=== PATIENT | female | born 1965 | race Caucasian/White ===

== ENCOUNTER 2019-04-24 12:37 | Emergency (ER) | payer OTHER ==
[2019-04-24] MEDS ORDERED: methylPREDNISolone Sodium Succinate 125 MG/2 ML SDV IVPUSH ONE (13:00)
[2019-04-24] MEDS ORDERED: Sodium Chloride 0.9% 1,000 ML IV ONE (13:08)
[2019-04-24] MEDS ORDERED: methylPREDNISolone Sodium Succinate 125 MG/2 ML SDV ONE (14:53)
--- NOTE | 2019-04-24 16:49 | EDM.PDOC ---
ED HPI GENERAL MEDICAL PROBLEM - General Chief Complaint: Neuro Symptoms/Deficits Stated Complaint: DIZZY Time Seen by Provider: 04/24/19 13:04 Source of Information: Reports: Patient, Family History Limitations: Reports: No Limitations - History of Present Illness INITIAL COMMENTS - FREE TEXT/NARRATIVE: This is a 54yo F here for severe vertigo. She states her symptoms started yesterday and occurred 5 different times. It did happen once during her shift at work. She would rest and it would improve. She notes the episode today was very severe and she was unable to walk properly and open her eyes due to the vertigo. She states the room spins. She denies any recent illness or other concerns. She has no past medical history or any medications. Onset: Sudden Duration: Day(s):, Intermittent Location: Reports: Generalized Severity: Severe Improves with: Reports: Rest Worsens with: Reports: Movement - Related Data Allergies Allergy/AdvReac Type Severity Reaction Status Date / Time No Known Allergies Allergy Verified 04/24/19 13:18 Home Meds: Home Meds predniSONE [Prednisone] See Taper PO DAILY 9 Days #40 tablet 04/24/19 [Rx] ED ROS ENT - Review of Systems Review Of Systems: ROS reveals no pertinent complaints other than HPI. ED EXAM, ENT - Physical Exam Exam: See Below Exam Limited By: No Limitations General Appearance: Alert, WD/WN, Moderate Distress Eye Exam: Bilateral Eye: EOMI, Nystagmus (horizontal torsional) Ears: Normal External Exam Nose: Normal Inspection Mouth/Throat: Normal Inspection Head: Atraumatic, Normocephalic Neck: Normal Inspection Respiratory/Chest: No Respiratory Distress, Lungs Clear Cardiovascular: Normal Peripheral Pulses, Regular Rate, Rhythm Back: Normal Inspection Extremities: Normal Inspection Neurological: Alert, Oriented, CN II-XII Intact, Normal Reflexes, No Motor/ Sensory Deficits Psychiatric: Normal Affect, Normal Mood Skin: Warm, Dry, Intact Course - Vital Signs Last Recorded V/S: Last Vital Signs Temp 36.7 C 04/24/19 13:08 Pulse 59 L 04/24/19 13:08 Resp 16 04/24/19 13:08 BP 151/61 H 04/24/19 13:08 Pulse Ox 100 04/24/19 13:08 - Orders/Labs/Meds Orders: Active Orders 24 hr Category Date Time Status EKG Documentation Completion [RC] ASDIRECTED Care 04/24/19 13:07 Active Meclizine [Antivert] Med 04/24/19 13:19 Active 25 mg PO DAILY PRN Medication Orders Meclizine HCl (Antivert) 25 mg PO DAILY PRN PRN Reason: Dizziness Labs: Laboratory Tests 04/24/19 04/24/19 04/24/19 Range/Units 13:06 13:10 13:10 WBC 6.4 (4.0-11.0) K/uL RBC 4.55 (3.80-5.80) M/uL Hgb 13.1 (11.5-16.5) g/dL Hct 39.3 (37.0-47.0) % MCV 86 (76-96) fL MCH 28.8 (27.0-32.0) pg MCHC 33.3 (31.0-35.0) g/dL RDW 13.5 (11.0-16.0) % Plt Count 169 (150-500) K/uL MPV 10.5 H (6.0-10.0) fL Neut % (Auto) 38.3 L (45.0-70.0) % Lymph % (Auto) 48.4 H (20.0-40.0) % [place] % (Auto) 12.1 H (3.0-10.0) % Eos % (Auto) 0.9 L (1.0-5.0) % Baso % (Auto) 0.3 (0.0-0.5) % Neut # (Auto) 2.45 (2.00-7.50) K/uL Lymph # (Auto) 3.11 (1.50-4.00) K/uL [place] # (Auto) 0.78 (0.20-0.80) K/uL Eos # (Auto) 0.06 (0.04-0.40) K/uL Baso # (Auto) 0.02 (0.02-0.10) K/uL Sodium 144 (136-145) mmol/L Potassium 4.0 (3.5-5.1) mmol/L Chloride 106 (98-107) mmol/L Carbon Dioxide 25.1 (21.0-32.0) mmol/L Anion Gap 16.9 H (5.0-15.0) mmol/L BUN 14 (8-26) mg/dL Creatinine 0.92 (0.55-1.02) mg/dL Est Cr Clr Drug Dosing 2.66 mL/min Estimated GFR (MDRD) > 60 (>60) MLS/MIN BUN/Creatinine Ratio 15.2 (6-25) Glucose 155 H (74-100) mg/dL Calcium 8.5 (8.5-10.1) mg/dL Total Bilirubin 0.3 (0.0-1.0) mg/dL AST 4 L (15-37) U/L ALT 15 (12-78) U/L Alkaline Phosphatase 83 (46-116) U/L Troponin I < 0.017 (0.000-0.060) ng/mL Total Protein 6.8 (6.4-8.2) g/dL Albumin 3.2 L (3.4-5.0) g/dL Globulin 3.6 (2.2-4.2) g/dL Albumin/Globulin Ratio 0.9 (0.8-2.0) TSH, Ultra Sensitive 2.868 (0.358-3.740) uIU/mL Meds: Medications Generic Name Dose Route Start Last Admin Trade Name Freq PRN Reason Stop Dose Admin Meclizine HCl 25 mg 04/24/19 13:19 Antivert PO DAILY PRN Dizziness Discontinued Medications Generic Name Dose Route Start Last Admin Trade Name Freq PRN Reason Stop Dose Admin Sodium Chloride 1,000 mls @ 999 mls/hr 04/24/19 13:08 04/24/19 13:21 Normal Saline IV 04/24/19 14:08 999 mls/hr .BOLUS ONE Administration Meclizine HCl Confirm 04/24/19 13:22 04/24/19 13:21 Antivert Administered 04/24/19 13:23 25 mg Dose Administration 25 mg .ROUTE .STK-MED ONE Methylprednisolone Sodium Succinate Confirm 04/24/19 14:53 Solu-Medrol Administered 04/24/19 14:54 Dose 125 mg .ROUTE .STK-MED ONE - Re-Assessments/Exams Free Text/Narrative Re-Assessment/Exam: Consulted Neurology and discussed imaging and follow up and differential. Plan of care for work up and imaging to be discussed with patient and family. Discussed likely peripheral neuritis ie Vestibular Neuritis but would discuss risks of infarction and hemorrhage and need for MRI with patient. Departure - Departure Time of Disposition: 14:50 Disposition: Home, Self-Care 01 Condition: Fair Clinical Impression: Acute vestibular neuritis Qualifiers: Laterality: unspecified laterality Qualified Code(s): H81.20 - Vestibular neuronitis, unspecified ear - Discharge Information Prescriptions: predniSONE [Prednisone] See Taper PO DAILY 9 Days #40 tablet Instructions: Meclizine chewable tablets, Ondansetron oral dissolving tablet, Vertigo, [id number], Dizziness, [id number], Prednisone tablets Referrals: PCP,None [Primary Care Provider] - Forms: ED Department Discharge Additional Instructions: Take the prednisone as prescribed. Followup in the clinic or ER as needed and if the symptoms persist or get worse. The symptoms should get better within 5-7 days. - Problem List & Annotations (1) Acute vestibular neuritis SNOMED Code(s): 754746609, 320896160, 362860567 Code(s): H81.20 - VESTIBULAR NEURONITIS, UNSPECIFIED EAR Status: Acute Qualifiers: Laterality: unspecified laterality Qualified Code(s): H81.20 - Vestibular neuronitis, unspecified ear - Problem List Review Problem List Initiated/Reviewed/Updated: Yes - My Orders Last 24 Hours: My Active Orders 04/24/19 13:07 EKG Documentation Completion [RC] ASDIRECTED 04/24/19 13:19 Meclizine [Antivert] 25 mg PO DAILY PRN - Assessment/Plan Last 24 Hours: My Active Orders 04/24/19 13:07 EKG Documentation Completion [RC] ASDIRECTED 04/24/19 13:19 Meclizine [Antivert] 25 mg PO DAILY PRN Plan: Patient is a travelling nurse. Discussed differential including stroke and hemorrhage vs neuritis. Discussed no symptoms of weakness, ipsilateral sensation changes, slurred speech, visual disturbance other than nystagmus that does improve with focusing on an object, and other signs and symptoms. Patient counseled on MRI and risks of stroke. Patient will go home with but monitor carefully and f/u in ER/Neurology as needed if symptoms persist or worsen. Patient counseled on medications and solumedrol. Discussed side effects and patient acknowledges understanding. Patient agrees with close monitoring and f/u and understands the risks of waiting to obtain an MRI at a later time. Patient to f/u with PCP and Neurology as discussed and ER as needed.
== END 2019-04-24 15:00 | disposition home or self-care (01) ==
LOC: LB.ED 12:37
DX: H81.20 Vestibular neuronitis, unspecified ear (principal)
CPT/HCPCS: 36415; 80053; 84443; 84484; 85025; 93005; 96361; 96374; 99284; A9270; J2930; J7030

== ENCOUNTER 2021-06-19 19:47 | Emergency (ER) | payer OTHER ==
[2021-06-19] MEDS ORDERED: Sulfamethoxazole/Trimethoprim 800-160 MG Tab ONE (20:00)
--- NOTE | 2021-06-19 20:36 | EDM.PDOC ---
ED HPI GENERAL MEDICAL PROBLEM - General Chief Complaint: Genitourinary Problem Stated Complaint: UTI Time Seen by Provider: 06/19/21 20:15 Source of Information: Reports: Patient, RN Notes Reviewed History Limitations: Reports: No Limitations - History of Present Illness Onset: Today, Gradual Location: Reports: Pelvis Quality: Reports: Burning, Pressure Severity: Moderate Improves with: Reports: None Worsens with: Reports: None - Related Data Allergies Allergy/AdvReac Type Severity Reaction Status Date / Time No Known Allergies Allergy Verified 04/24/19 13:18 Home Meds: Home Meds predniSONE [Prednisone] See Taper PO DAILY 9 Days #40 tablet 04/24/19 [Rx] ED ROS GENERAL - Review of Systems Review Of Systems: See Below Constitutional: Denies: Fever, Chills HEENT: Reports: No Symptoms Respiratory: Reports: No Symptoms Cardiovascular: Reports: No Symptoms GI/Abdominal: Reports: No Symptoms : Reports: Dysuria, Frequency, Hematuria, Urgency Musculoskeletal: Reports: No Symptoms Skin: Reports: No Symptoms Neurological: Reports: No Symptoms ED EXAM, RENAL/ - Physical Exam Exam: See Below Exam Limited By: No Limitations General Appearance: Alert, No Apparent Distress Eye Exam: Bilateral Eye: PERRL Ears: Normal External Exam Nose: Normal Inspection Head: Atraumatic, Normocephalic Neck: Normal Inspection, Full Range of Motion Respiratory/Chest: No Respiratory Distress, No Accessory Muscle Use Back Exam: CVA Tenderness (R), CVA Tenderness (L) Extremities: Normal Inspection Neurological: Alert, Oriented Skin Exam: Warm, Dry, Intact Departure - Departure Time of Disposition: 20:30 Disposition: Home, Self-Care 01 Condition: Good Clinical Impression: UTI, Urinary tract infectious disease - Discharge Information
== END 2021-06-19 20:20 | disposition home or self-care (01) ==
LOC: LB.ED 19:47
DX: N39.0 Urinary tract infection, site not specified (principal)
CPT/HCPCS: 99283; A9270